=== PATIENT | female | born 1990 | race Caucasian/White ===

== ENCOUNTER 2021-01-03 10:36 | Emergency (ER) | payer OTHER ==
[~2021-01-03 10:36] MED LIST: COLACE 100MG C100 MG PO; PRENATAL VITAM1 EAC8 PO
[2021-01-03] MEDS ORDERED: NORFLEX 100 MG100 MG PO (13:57)
[2021-01-03] MEDS ORDERED: MEDROL DOSEPAK 24 MG PO (13:57)
[2021-01-03] MEDS ORDERED: ZOFRAN4 MG PO (13:57)
== END 2021-01-03 14:20 | disposition home or self-care (01) ==
LOC: ER1 10:36
DX: R09.81 Nasal congestion (principal); R05 Cough; R11.10 Vomiting, unspecified; M54.32 Sciatica, left side; F17.210 Nicotine dependence, cigarettes, uncomplicated; Z20.822 Contact with and (suspected) exposure to COVID-19
CPT/HCPCS: 99284; U0002

== ENCOUNTER 2021-11-29 18:55 | Inpatient (IN) | payer OTHER ==
[~2021-11-29] VITALS: Ht 160 cm; Wt 66.2 kg
[~2021-11-29 18:55] MED LIST changes: +MEDROL DOSEPAK 24 MG PO; +NORFLEX 100 MG100 MG PO; +ZOFRAN4 MG PO
[2021-11-29 19:32] LABS: HEMOGLOBIN 13.9 gm/dl (12.3-15.3); RED BLOOD COUNT 4.35 M/UL (4.00-5.10); WHITE BLOOD COUNT 11.9 K/UL (4.5-11.0)
[2021-11-29] MEDS ORDERED: IBUPROFEN600 MG PO (20:52)
[2021-11-29] MEDS ORDERED: DOCUSATE SODIU250 MG PO (20:52)
== END 2021-12-01 11:24 | disposition home or self-care (01) | DRG 807 ==
LOC: GENOP 18:55 → OB 19:17
PROVIDERS: ADMIT Obstetrics & Gynecology
PROC: 10E0XZZ Delivery of Products of Conception, External Approach (ICD-10-PCS; principal; 2021-11-29)
PROC: 10907ZC Drainage of Amniotic Fluid, Therapeutic from Products of Conception, Via Natural or Artificial Opening (ICD-10-PCS; 2021-11-29)
PROC: 4A1HXCZ Monitoring of Products of Conception, Cardiac Rate, External Approach (ICD-10-PCS; 2021-11-29)
PROC: 3E0234Z Introduction of Serum, Toxoid and Vaccine into Muscle, Percutaneous Approach (ICD-10-PCS; 2021-11-29)
DX: O99.334 Smoking (tobacco) complicating childbirth (principal); Z37.0 Single live birth; Z20.822 Contact with and (suspected) exposure to COVID-19; Z3A.38 38 weeks gestation of pregnancy; Z28.310 Unvaccinated for COVID-19; F17.210 Nicotine dependence, cigarettes, uncomplicated; Z82.49 Family history of ischemic heart disease and other diseases of the circulatory system; Z23 Encounter for immunization
CPT/HCPCS: 80307; 81001; 85014; 85018; 85025; 90715; J2590